=== PATIENT | female | born 1945 | race Caucasian/White ===

== ENCOUNTER 2016-08-30 11:20 | Emergency (ER) | payer OTHER, MEDICARE ==
[2016-08-30 11:27] VITALS: BP 150/99; PULSE 73; RESP 14; TEMP 97.9; O2SAT 99
--- NOTE | 2016-08-30 11:58 | EDPHY ---
H & P Stated Complaint: R WRIST INJ AFTER FALL Time Seen by Provider: 08/30/16 11:43 - Personal History Current Tetanus/Diphtheria Vaccine: Unsure Current Tetanus Diphtheria and Acellular Pertussis (TDAP): Unsure Tetanus Vaccine Date: 2005 - Medical/Surgical History Hx Asthma: No Hx Chronic Respiratory Disease: No Hx Diabetes: No Hx Cardiac Disease: No Hx Renal Disease: No Hx Cirrhosis: No Hx Alcoholism: No Hx HIV/AIDS: No Hx Splenectomy or Spleen Trauma: No Other PMH: DENIES - Social History Smoking Status: Never smoked Constitutional: Initial Vital Signs Temperature (C) 36.6 C 08/30/16 11:24 Heart Rate 73 08/30/16 11:24 Respiratory Rate 14 08/30/16 11:24 Blood Pressure 150/99 H 08/30/16 11:24 O2 Sat (%) 99 08/30/16 11:24 O2 Delivery Mode Room Air Allergies/Adverse Reactions: meperidine HCl [From Demerol] Allergy (Verified 02/14/13 21:30) Home Medications: Medication Instructions Recorded Amoxicillin/Clavulanate Pot 875 mg PO BID #14 tab 02/14/13 [Augmentin 875 mg tab] BUPROPION HCL [BUPROPION XL] 150 mg PO BID 02/14/13 Ciprofloxacin [Cipro] 500 mg PO BID@1000,199902/14/13 Citalopram Hydrobromide 40 mg PO DAILY 02/14/13 [Citalopram HBr 40 MG] Hydroxychloroquine Sulfate 200 mg PO DAILY 02/14/13 [Plaquenil 200 mg (RX)] Methotrexate Sodium/Pf 25 mg IJ 02/14/13 [Methotrexate 25 mg/ml Vial] Ondansetron Odt [Zofran Odt 4 mg 4 mg PO Q4PRN PRN #6 tab 02/14/13 (*)] metroNIDAZOLE [Flagyl 500 mg (RX)] 500 mg PO Q8 02/14/13 predniSONE [Prednisone] 5 mg PO DAILY 02/14/13 Departure - Departure Referrals: Jeanette Bolton MD [Primary Care Provider] - As per Instructions
--- NOTE | 2016-08-30 12:03 | EDPHY ---
H & P Smoking Status: Never smoked Time Seen by Provider: 08/30/16 11:43 HPI/ROS: CHIEF COMPLAINT: Right wrist pain HISTORY OF PRESENT ILLNESS: 70-year-old female presents emergency department complaining of right wrist pain. Patient is [id number]. Patient had a mechanical trip and fall today, she hit her right wrist on the bookshelf and had immediate pain and swelling. Patient denies numbness or tingling in this arm , no previous injuries to this arm. She denies head strike, no neck pain, she remembers the entire accident. (Dianne Howell) Physical Exam: GEN: Awake, alert, oriented, no acute distress RESP: nl resp effort MSK: Right wrist with tenderness to palpation to ulnar styloid, distal radius tenderness to palpation, mild snuffbox tenderness, no elbow tenderness, cap refill less than 2 seconds, sensation intact to light touch, 2+ radial pulses, superficial abrasion to medial forearm (Dianne Howell) Constitutional: Initial Vital Signs Temperature (C) 36.6 C 08/30/16 11:24 Heart Rate 73 08/30/16 11:24 Respiratory Rate 14 08/30/16 11:24 Blood Pressure 150/99 H 08/30/16 11:24 O2 Sat (%) 99 08/30/16 11:24 O2 Delivery Mode Room Air Allergies/Adverse Reactions: meperidine HCl [From Demerol] Allergy (Verified 02/14/13 21:30) Home Medications: Medication Instructions Recorded Amoxicillin/Clavulanate Pot 875 mg PO BID #14 tab 02/14/13 [Augmentin 875 mg tab] BUPROPION HCL [BUPROPION XL] 150 mg PO BID 02/14/13 Ciprofloxacin [Cipro] 500 mg PO BID@1000,199902/14/13 Citalopram Hydrobromide 40 mg PO DAILY 02/14/13 [Citalopram HBr 40 MG] Hydroxychloroquine Sulfate 200 mg PO DAILY 02/14/13 [Plaquenil 200 mg (RX)] Methotrexate Sodium/Pf 25 mg IJ 02/14/13 [Methotrexate 25 mg/ml Vial] Ondansetron Odt [Zofran Odt 4 mg 4 mg PO Q4PRN PRN #6 tab 02/14/13 (*)] metroNIDAZOLE [Flagyl 500 mg (RX)] 500 mg PO Q8 02/14/13 predniSONE [Prednisone] 5 mg PO DAILY 02/14/13 MDM/Departure - MDM Diagnostics: Right wrist xray independently reviewed by me- Impression: Acute minimally displaced distal ulnar fracture. Dictated By: Chad Salazar MD (Dianne Howell) Procedures: A volar Ortho Glass splint was applied. After application of the splint, I returned and re-examined the patient. The splint was adequately immobilizing the joint. The patients circulation and sensation were intact distal to the splint. (Dianne Howell) ED Course/Re-evaluation: The patient was evaluated and managed by the Physician Ghost Writer/ Nurse Practitioner. My co-signature indicates that I have reviewed this chart and I agree with the findings and plan of care as documented. I am the secondary supervising physician. (Gwendolyn Ambriz) - Depart Disposition: Home, Routine, Self-Care Clinical Impression: Right distal ulnar fracture Condition: Good Instructions: Wrist Fracture in Adults (ED) Additional Instructions: Rest, ice, elevate, take 600 mg of ibuprofen every 8 hours with food for 3 days. Keep splint clean and dry, follow up with orthopedist at 1st available appointment, call today to schedule this. Return to the emergency department for pain that is not controlled, numbness or tingling in your arm, new symptoms or concerns. Referrals: Gordon Moser MD [Medical Doctor] - As per Instructions
== END 2016-08-30 12:46 | disposition home or self-care (01) ==
DX: S52.601A Unspecified fracture of lower end of right ulna, initial encounter for closed fracture (principal); W01.198A Fall on same level from slipping, tripping and stumbling with subsequent striking against other object, initial encounter; Y93.89 Activity, other specified

== ENCOUNTER → 2017-02-11 | Outpatient (CLI) | payer OTHER, MEDICARE ==
[~2017-02-11] MED LIST: GADOBUTROL 10 ML VIAL IVP ONE
== END ==
LOC: FIMAGING 07:41
PROVIDERS: ATTEND Psychiatry & Neurology Neurology
DX: R41.3 Other amnesia (principal)
CPT/HCPCS: 70553; A9585; 82607-90; 83921-90

== ENCOUNTER 2017-07-15 16:37 | Inpatient (IN) | payer OTHER, MEDICARE ==
[2017-07-15] MEDS ORDERED: ONDANSETRON 4 MG/2 ML VIAL IVP ONE ×2 (16:56→17:38)
[2017-07-15] MEDS ORDERED: ONDANSETRON 4 MG/2 ML VIAL ONE (16:58)
--- NOTE | 2017-07-15 16:58 | EDPHY ---
H & P Stated Complaint: ABd pain w/nausea this afternoon Time Seen by Provider: 07/15/17 16:56 HPI/ROS: CHIEF COMPLAINT: Severe abdominal pain HISTORY OF PRESENT ILLNESS: The patient presents to the ED with a 1 day history of severe abdominal pain and vomiting. She complains primarily of a left upper quadrant pain. She has vomited several times. She has no prior abdominal surgical history. The patient does have a history of remote diverticulitis. The patient denies any hematemesis or melena. The patient does have a history of rheumatoid arthritis. The patient denies any fever, cough or congestion. She denies any travel outside the [place] a recent antibiotic use. REVIEW OF SYSTEMS: A comprehensive 10 point review of systems is otherwise negative aside from elements mentioned in the history of present illness. Source: Patient Exam Limitations: No limitations - Personal History Current Tetanus Diphtheria and Acellular Pertussis (TDAP): Yes Tetanus Vaccine Date: 2005 - Medical/Surgical History Hx Asthma: No Hx Chronic Respiratory Disease: No Hx Diabetes: No Hx Cardiac Disease: No Hx Renal Disease: No Hx Cirrhosis: No Hx Alcoholism: No Hx HIV/AIDS: No Hx Splenectomy or Spleen Trauma: No Other PMH: diverticulosis. RA. memory issues - Social History Smoking Status: Never smoked - Physical Exam Exam: General Appearance: Alert, appears uncomfortable Eyes: Pupils equal and round no pallor or injection ENT, Mouth: Mucous membranes moist Respiratory: There are no retractions, lungs are clear to auscultation Cardiovascular: Regular rate and rhythm Gastrointestinal: Diffuse generalized tenderness to palpation, hypoactive bowel sounds, mild distension Neurological: A&O, normal motor function, normal sensory exam, normal cranial nerves Skin: Warm and dry, no rashes Musculoskeletal: Neck is supple nontender Extremities: symmetrical, full range of motion Psychiatric: Patient is oriented X 3, there is no agitation Constitutional: Initial Vital Signs Temperature (C) 36.9 C 07/15/17 16:38 Heart Rate 69 07/15/17 16:38 Respiratory Rate 20 07/15/17 16:38 Blood Pressure 171/110 H 07/15/17 16:38 O2 Sat (%) 100 07/15/17 16:38 O2 Delivery Mode Room Air Allergies/Adverse Reactions: meperidine HCl [From Demerol] Allergy (Mild, Verified 07/15/17 16:43) gi upset Home Medications: Medication Instructions Recorded BUPROPION HCL [BUPROPION XL] 150 mg PO BID 02/14/13 Citalopram Hydrobromide 40 mg PO DAILY 02/14/13 [Citalopram HBr 40 MG] Hydroxychloroquine Sulfate 200 mg PO DAILY 02/14/13 [Plaquenil 200 mg (RX)] Abatacept [Orencia] 07/15/17 Cholecalciferol Vit D3 [Vitamin D3 1,000 units PO DAILY 07/15/17 (*)] Menitine 07/15/17 Medical Decision Making - Diagnostics Imaging Results: Imaging Impressions Abdomen CT 07/15/17 17:18 Impression: 1. Partial small bowel obstruction of the jejunum with the appearance of a left internal hernia, likely left paraduodenal. 2. Large hiatal hernia. Results discussed with Ramiro Abdalla PA-C, on 15 July 2017 at 1815 hours. ED Course/Re-evaluation: The patient presents the ED with sudden onset severe left upper quadrant pain and vomiting. The patient was noted to be quite uncomfortable upon exam. The patient had an IV established. She was placed on a recreation leader a stat I- STAT was obtained and a normal creatinine was verified. The patient was taken for an emergent CT scan of the abdomen pelvis and I notify Dr. Mejia of the patient's concerning examination. CT scan of the abdomen pelvis does demonstrate evidence of a bowel obstruction and internal hernia. The patient is being evaluated by Dr. Mejia at 6:10 p.m. An NG tube was placed in the patient. His plan is for observation and serial exams. Differential Diagnosis: Differential diagnosis considered includes peritonitis, perforation, obstruction , bowel ischemia Critical Care Time: Critical care time exclusive of procedures and exclusive of the PA's time was 35 minutes, performed by myself, Aman Estrada MD. The patient presents the ED with an acute surgical abdomen and closed loop obstruction. She required urgent consultation by the general surgeon. - Data Points Laboratory Results: Laboratory Results 07/15/17 16:54 07/15/17 16:54 07/15/17 07/15/17 16:54 16:54 WBC 6.71 10^3/uL 10^3/uL (3.80-9.50) RBC 4.71 10^6/uL 10^6/uL (4.18-5.33) Hgb 15.1 g/dL g/dL (12.6-16.3) Hct 43.6 % % (38.0-47.0) MCV 92.6 fL fL (81.5-99.8) MCH 32.1 pg pg (27.9-34.1) MCHC 34.6 g/dL g/dL (32.4-36.7) RDW 13.3 % % (11.5-15.2) Plt Count 271 10^3/uL 10^3/uL (150-400) MPV 9.4 fL fL (8.7-11.7) Neut % (Auto) 68.8 % % (39.3-74.2) Lymph % (Auto) 23.1 % % (15.0-45.0) [place] % (Auto) 6.7 % % (4.5-13.0) Eos % (Auto) 0.4 % L % (0.6-7.6) Baso % (Auto) 0.6 % % (0.3-1.7) Nucleat RBC Rel Count 0.0 % % (0.0-0.2) Absolute Neuts (auto) 4.61 10^3/uL 10^3/uL (1.70-6.50) Absolute Lymphs (auto) 1.55 10^3/uL 10^3/uL (1.00-3.00) Absolute Monos (auto) 0.45 10^3/uL 10^3/uL (0.30-0.80) Absolute Eos (auto) 0.03 10^3/uL 10^3/uL (0.03-0.40) Absolute Basos (auto) 0.04 10^3/uL 10^3/uL (0.02-0.10) Absolute Nucleated RBC 0.00 10^3/uL 10^3/uL (0-0.01) Immature Gran % 0.4 % % (0.0-1.1) Immature Gran # 0.03 10^3/uL 10^3/uL (0.00-0.10) Sodium 140 mEq/L mEq/L (135-145) Potassium 4.1 mEq/L mEq/L (3.5-5.2) Chloride 104 mEq/L mEq/L (97-110) Carbon Dioxide 20 mEq/l L mEq/l (22-31) Anion Gap 16 mEq/L mEq/L (8-16) BUN 19 mg/dL mg/dL (7-23) Creatinine 0.8 mg/dL mg/dL (0.6-1.0) Estimated GFR > 60 Glucose 141 mg/dL H mg/dL (70-100) Calcium 9.9 mg/dL mg/dL (8.5-10.4) Total Bilirubin 0.5 mg/dL mg/dL (0.1-1.4) Conjugated Bilirubin 0.3 mg/dL mg/dL (0.0-0.5) Unconjugated Bilirubin 0.2 mg/dL mg/dL (0.0-1.1) AST 23 IU/L IU/L (14-46) ALT 26 IU/L IU/L (9-52) Alkaline Phosphatase 98 IU/L IU/L (38-126) Total Protein 7.5 g/dL g/dL (6.3-8.2) Albumin 4.6 g/dL g/dL (3.5-5.0) Lipase 86 IU/L IU/L (23-300) Medications Given: Discontinued Medications Sodium Chloride (Ns) 1,000 mls @ 0 mls/hr IV ONCE ONE PRN Reason: Wide Open Stop: 07/15/17 17:38 Last Admin: 07/15/17 17:42 Dose: 1,000 mls Lidocaine (Uroject Lidocaine 2% Jelly) 20 ml UR ONCE ONE Stop: 07/15/17 18:37 Last Admin: 07/15/17 18:53 Dose: 20 ml Morphine Sulfate (Morphine) 4 mg IVP EDNOW ONE Stop: 07/15/17 17:20 Last Admin: 07/15/17 17:33 Dose: 4 mg Ondansetron HCl (Zofran) 4 mg IVP EDNOW ONE Stop: 07/15/17 16:57 Last Admin: 07/15/17 17:00 Dose: 4 mg Ondansetron HCl (Zofran) 4 mg IVP EDNOW ONE Stop: 07/15/17 17:39 Last Admin: 07/15/17 17:42 Dose: 4 mg Departure - Departure Disposition: [facility] Acute Clinical Impression: Obstructed internal hernia Condition: Fair
[2017-07-15 17:19] LABS: PLATELET COUNT 271 10^3/uL (150-400)
[2017-07-15] MEDS ORDERED: IOPAMIDOL (ISOVUE-300) 100 ML BTL ONE (17:24)
[2017-07-15] MEDS ORDERED: NS 1,000 ML IV ONE (17:37)
[2017-07-15] MEDS ORDERED: LIDOCAINE 2% JELLY 20 ML (UROJECT) UR ONE (18:36)
[2017-07-15] MEDS ORDERED: CEPACOL LOZENGE PO PRN (18:58)
[2017-07-15] MEDS ORDERED: PROCHLORPERAZINE MALEATE 25 MG SUPPR PR PRN (19:07)
[2017-07-15] MEDS ORDERED: D5W 1/2 NS 1,000 ML IV SCH (19:15)
--- NOTE | 2017-07-15 20:15 | GHP ---
[f rep st] PREOP HISTORY AND PHYSICAL DATE OF ADMISSION: 07/15/2017 ADMITTING DIAGNOSES: 1. Jejunal small bowel obstruction. 2. Large hiatal hernia. HISTORY: The patient is a 71-year-old female who was in her usual state of health until 2:00 p.m. She had a chicken sandwich at 12:30, and at 2:00 p.m., she had the onset of an epigastric discomfort and nausea. By 3:00 to 3:30, she was beginning to have emesis (minimally productive) which prompted her to come to the emergency room. She has not had any prior abdominal surgery or prior similar episode. She did have an episode 2-1/2 years ago of diverticulitis when she was in [place]. She has recently had an upper respiratory tract infection. There is no history of diarrhea. In fact, she normally moves her bowels once a day and did so this morning. She has had no prior abdominal surgery. There is no history of inflammatory bowel disease. She was in [place] over [place] and in [place] last January. SOCIAL HISTORY: She does not smoke and never has. She has 1-2 drinks of Nicole a night. ALLERGIES: She developed a rash with Demerol, but no hives or difficulty breathing or oropharyngeal swelling. PAST MEDICAL HISTORY: She does have rheumatoid arthritis and takes Plaquenil 200 mg 2 times a day and Orencia monthly. She also takes Celexa 40 mg daily and bupropion XL 150 mg twice a day as well as B12. She uses memantine twice a day, and the dose is believed to be 10 mg. Her only surgery has been a tonsillectomy. There is no history of rheumatic fever, tuberculosis, or transfusions. Note is made that she was vaccinated with BCG as a young girl and she has had hepatitis B. 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 She has had malaria twice (falciparum). She has a history of a concussion. She wears lenses for reading. She has occasional stress incontinence. There are no limits on her activities. No history of steroid use. PHYSICAL EXAMINATION: GENERAL: She is quite pleasant and interactive. HEENT: Shows skull which is normocephalic and atraumatic. Pupils equal, round , reactive to light and accommodation with extraocular movements intact. NECK: Supple, nontender. There is no thyroid enlargement. There are carotid bruits. There is no cervical, supraclavicular, axillary, or inguinal lymphadenopathy. BACK: Unremarkable. LUNGS: Clear to auscultation. CARDIAC: Shows S1 and S2 to be normal with no split of S2, without murmurs, rubs, or gallops. ABDOMEN: Distended. She has rare but normal bowel sounds. There are no high- pitched bowel sounds. There are no "rain barrel" sounds. It is distended, and minimally tender. Pelvis is stable to AP and lateral compression. EXTREMITIES : Lower extremities are unremarkable. DIAGNOSTIC DATA: Her CT does show a large hiatal hernia. On the left side, she has what appears to be an internal hernia. The question is raised as to whether it is a paraduodenal hernia. I suspect rather this is due to omentum being adhesed down with the prior episode of diverticulitis and the bowel getting stuck behind it. Nonetheless, an NG tube was successfully passed through the right naris. I am able to pass it to 45 cm. It is difficult to pass it further. I feel I am probably in the hiatal hernia. We will leave it there overnight, and we may have to advance it in the morning. LABORATORY DATA: Her white blood cell count is 6.7 with 69% neutrophils. Platelet count is 271. Hematocrit is 43. Sodium is 140, potassium is 4.1, BUN is 19, creatinine is 0.8, glucose is 141, lipase is 86. IMPRESSION: The patient has a partial early jejunal bowel obstruction secondary to either adhesions or possible paraduodenal hernia. She also has a large hiatal hernia. A trial with decompression will be considered as she is not toxic at this point and I am not concerned for bowel injury/ischemia yet. She will be reassessed in the morning with x-rays and laboratories. /[id number]/MODL MTDD
[2017-07-15] MEDS: KETOROLAC 30 MG/1 ML SDV IVP SCH (23:26)
[2017-07-16 05:14] LABS: PLATELET COUNT 244 10^3/uL (150-400)
[2017-07-16] MEDS: KETOROLAC 30 MG/1 ML SDV IVP SCH (06:09)
--- NOTE | 2017-07-16 09:58 | ASMTCASEMG ---
Living Arrangements What is your living Answers: With Partner arrangement? Who do you live with? Type Of Residence What kind of residence do Answers: House you live in? Discharge Plan Comments Coordination Status Comments Notes: Pt is a 71 y/o female admitted for a closed loop bowel obstruction. Surgery has been consulted. PT, OT and PRODUCT REPRESENTATIVE has been ordered. Needs are TBD at this time. CM to follow. Plan: TBD Date Signed: 07/16/2017 09:57 AM Electronically Signed By:VALDO Beckham
[2017-07-16] MEDS ORDERED: ONDANSETRON 4 MG/2 ML VIAL ONE (10:58)
[2017-07-16] MEDS: ONDANSETRON 4 MG/2 ML VIAL IVP PRN (11:07)
--- NOTE | 2017-07-16 11:11 | SOAPPROG ---
SOAP Progress Note Assessment/Plan: Assessment: abdominal pain unclear etiology persistant despite NGT no clearly established etiology (suspected "paraduodenal hernia" on CT) large paraesophogeal hernia Hx of RA last received Orencia 2 weeks ago Plan: Continue IV fluids and NPO SBFT study via NGT, comfort measures, PPI 07/16/17 11:12 07/16/17 11:15 Subjective: persistant epigastric/rafia-umbilical pain vomiting around NGT Objective: Vital Signs Temp Pulse Resp BP Pulse Ox 36.9 C 70 16 92/61 L 93 07/16/17 07:18 07/16/17 07:18 07/16/17 07:18 07/16/17 07:18 07/16/17 07:18 Laboratory Results 07/16/17 05:01 07/16/17 05:01 07/15/17 07/16/17 07/17/17 05:59 05:59 05:59 Intake Total 100 Output Total 100 Balance 100 -100 - Time Spent With Patient Time Spent With Patient: 20 - Pending Discharge Pending Discharge Within 24 Hours: No Physical Exam - Physical Exam General Appearance: alert, mild distress Respiratory: lungs clear Cardiac/Chest: regular rate, rhythm Abdomen: soft, distended, other (mild upper abdominal tenderness/no mass or hernia/no guarding or rebound) Pelvic Exam: deferred Rectal: deferred Lymphatic: no adenopathy Extremities: normal range of motion Neuro/Psych: other (reports memory loss) ICD10 Worksheet Patient Problems: Problems Problem Status Onset Abdominal pain Acute Memory loss of unknown cause Acute Obstructed internal hernia Acute Rheumatoid arthritis Acute - ICD10 Problem Qualifiers (1) Abdominal pain Qualifiers: Abdominal location: epigastric Qualified Code(s): R10.13 - Epigastric pain (2) Rheumatoid arthritis Qualifiers: Rheumatoid arthritis location: multiple sites (3) Memory loss of unknown cause
[2017-07-16] MEDS: PANTOPRAZOLE SODIUM 40 MG VIAL IVP SCH (11:15)
--- NOTE | 2017-07-16 16:33 | SOAPPROG ---
Downtime Inpatient MD Late Entry SOAP Note: SBFT aborted due to inability to pass NGT beyond hiatal hernia. Gastrograffin had been administered and I was concerned about proceeding with high risk of aspiration. I removed the NGT (it had not drained much) and cancelled the study for now. She has a soft/non-tender abdomen currently. I will request a repeat KUB in the morning and if dilated loops of bowel persist order a barium UGI, which would be much safer from an aspiration risk.
--- NOTE | 2017-07-16 19:55 | SOAPPROG ---
Downtime Inpatient MD Late Entry SOAP Note: Sharon is resting comfortably/ at bedside She denies pain or nausea presently She is somewhat more confused, but reorients with conversation Her abd is soft with mild epigastric tenderness to deep palpation, bowel sounds are hypoactive Imp: abd pain, unclear etiology clinically resolving Rec: repeat KUB in AM +/- barium UGI discussed plan with patient and her S MD Say, FACS
[2017-07-17] MEDS: ONDANSETRON 4 MG/2 ML VIAL IVP PRN (00:49)
--- NOTE | 2017-07-17 06:57 | SOAPPROG ---
[facility] Progress Note Assessment/Plan: Assessment: abdominal pain-resolved no clearly established etiology (suspected "paraduodenal hernia" on CT) large paraesophogeal hernia Hx of RA last received Orencia 2 weeks ago Plan: advance to clear liquids continue PPI/hold off on UGI for now anticipate discharge tomorrow if diet tolerated/continue GI work up as outpatient 07/16/17 11:12 07/16/17 11:15 07/17/17 06:54 Subjective: feeling better, no pain, no emesis after NG removal Objective: Vital Signs Temp Pulse Resp BP Pulse Ox 36.9 C 48 L 16 118/71 95 07/17/17 04:00 07/17/17 04:00 07/17/17 04:00 07/17/17 04:00 07/17/17 04:00 Laboratory Results 07/16/17 05:01 07/16/17 05:01 07/16/17 07/17/17 07/18/17 05:59 05:59 05:59 Intake Total 100 1200 Output Total 700 Balance 100 500 Physical Exam - Physical Exam General Appearance: alert, no apparent distress Cardiac/Chest: regular rate, rhythm Abdomen: normal bowel sounds, non-tender, soft ICD10 Worksheet Patient Problems: Problems Problem Status Onset Abdominal pain Acute Memory loss of unknown cause Acute Obstructed internal hernia Acute Rheumatoid arthritis Acute - ICD10 Problem Qualifiers (1) Abdominal pain Qualifiers: Abdominal location: epigastric Qualified Code(s): R10.13 - Epigastric pain (2) Rheumatoid arthritis Qualifiers: Rheumatoid arthritis location: multiple sites (3) Memory loss of unknown cause
[2017-07-17] MEDS: PANTOPRAZOLE SODIUM 40 MG VIAL IVP SCH (09:00)
[2017-07-17] MEDS: D5W 1/2 NS W/ 20 KCl/L 1,000 ML IV SCH (15:43)
[2017-07-17] MEDS ORDERED: HYDROmorphONE/DILAUDID 1 MG/ML INJ IVP PRN (20:40)
[2017-07-18] MEDS: D5W 1/2 NS W/ 20 KCl/L 1,000 ML IV SCH (06:41)
[2017-07-18 07:25] VITALS: RESP 18
[2017-07-18] MEDS: PANTOPRAZOLE SODIUM 40 MG VIAL IVP SCH (09:40)
[2017-07-18] MEDS ORDERED: PANTOPRAZOLE SODIUM 40 MG TAB PO ONE (10:01)
--- NOTE | 2017-07-18 10:12 | PDDCSUM ---
Discharge Summary Discharge Summary: #[id number] Catrachito Deal MD, FACS
--- NOTE | 2017-07-18 10:36 | GDS ---
[f rep st] DISCHARGE SUMMARY DISCHARGE DIAGNOSES: 1. Abdominal pain, unclear etiology. 2. Hiatal hernia. 3. Dementia. 4. History of depression. 5. Rheumatoid arthritis. PROCEDURES PERFORMED: CT scan of the abdomen and pelvis on admission. Nasogastric tube placement. Attempted small-bowel follow-through. HOSPITAL COURSE: For details of admission History and Physical, please see dictated summary by Dr. Lore Mejia and ED consult by Dr. Abhay Estrada. Briefly, the patient is a 71-year-old female, who prese nted with acute vomiting and abdominal pain. CT scan showed a possible bowel obstruction, and a naso gastric tube was placed. Because of a pre-existing hiatal hernia, the tube did not go below the diap hragm, and this was confirmed the following day on plain film. A small-bowel follow-through was requ ested, and contrast was passed through the NG tube but could not be advanced into the distal stomach. At this point, the patient had no clinical signs of abdominal pain, and I chose to remove the NG tu be and keep her n.p.o. under observation. Her abdominal pain resolved. She had no further emesis. She was started on a clear liquid diet and was slowly advanced in her diet as tolerated. She had sev eral bowel movements. A KUB on the morning after the attempted small-bowel follow-through showed con trast had passed through the small bowel and was in the colon. At time of discharge, she was afebril e, ambulating with assistance, and tolerating a soft diet. I recommended she continue pantoprazole, which was started on the day after admission, for an additional 30 days, and follow up with her prima care doctor, Ana Rosa Bolton. An outpatient upper GI with barium would be appropriate as a next amos p in workup, and would not require sedation which could exacerbate her recently evaluated dementia. Patient will resume Orencia, her last dose was 2 weeks ago, and follow up with Dr. Morgan Hidalgo. S he also has neurologic follow up with Dr. Sarah Owens. DISCHARGE MEDICATIONS: Plaquenil 200 mg p.o. daily, citalopram 40 mg q.h.s., bupropion 150 mg p.o. b .i.d., Namenda 10 mg p.o. b.i.d., Orencia q.30 days, vitamin D3 1000 units p.o. daily, and pantoprazo le 40 mg p.o. daily. /[id number]/MODL
[2017-07-18 11:18] VITALS: BP 124/80; PULSE 55; TEMP 98; O2SAT 92
--- NOTE | 2017-07-18 15:36 | ASMTLACE ---
LACE Length of stay for Answers: 2 days current admission Acuity / Level of Answers: No Care: Did the patient have an inpatient admission? Comorbidities - select Answers: Dementia all that apply Other # of Emergency department Answers: 1-2 visits in the last 6 months Social determinants Answers: Mental health diagnosis (anxiety, depression, pers onality disorders, etc.) Score: 10 Date Signed: 07/18/2017 03:35 PM Electronically Signed By:Ramona Mccartney RN
--- NOTE | 2017-07-18 15:46 | ASMTCMCOM ---
CM Note CM Note Notes: Spoke w/, PT/OT recommend home w/24hr supervision. declined need for homecare, states he is with her all the time. Advised him if needed once they are home, PCP can order homecare. DC Plan: Home w/ Date Signed: 07/18/2017 03:46 PM Electronically Signed By:Ramona Mccartney RN
--- NOTE | 2017-07-18 15:55 | ASDISCHSUM ---
Discharge Information Plan Status:Home with No Needs Medically Cleared to Leave: Discharge Date:07/18/2017 01:49 PM CM D/C Disposition:Home, Routine, Self-Care ADT D/C Disposition:Home, Routine, Self-Care Projected Discharge Date:07/18/2017 01:49 PM Transportation at D/C:Family Discharge Delay Reason: Follow-Up Date:07/18/2017 01:49 PM Discharge Slot: Final Diagnosis: Placement Information Patient Contact Information Contact Name:ZAHRA Relationship: Address:[address] [place] [address] City:[place] Alternate Phone: [facility]/Zip Code:[place] [address] Email: Financial Information Financial Class: Primary Plan Desc:MEDICARE INPATIENT Primary Plan Number:[id number] Secondary Plan Desc:[employer]/MDR SUPPLEMENT Secondary Plan Number:[id number] Assessment Information [facility] Initial CM Assessment Living Arrangements What is your living Answers: With Partner arrangement? Who do you live with? Type Of Residence What kind of residence do Answers: House you live in? Discharge Plan Comments Coordination Status Comments Notes: Pt is a 71 y/o female admitted for a closed loop bowel obstruction. Surgery has been consulted. PT, OT and FOOD SAFETY SCIENTIST has been ordered. Needs are TBD at this time. CM to follow. Plan: TBD Date Signed: 07/16/2017 09:57 AM Electronically Signed By:VALDO Beckham LACE LACE Length of stay for Answers: 2 days current admission Acuity / Level of Answers: No Care: Did the patient have an inpatient admission? Comorbidities - select Answers: Dementia all that apply Other # of Emergency department Answers: 1-2 visits in the last 6 months Social determinants Answers: Mental health diagnosis (anxiety, depression, pers onality disorders, etc.) Score: 10 Date Signed: 07/18/2017 03:35 PM Electronically Signed By:Ramona Mccartney RN [facility] CM Progress Note CM Note CM Note Notes: Spoke w/, PT/OT recommend home w/24hr supervision. declined need for homecare, states he is with her all the time. Advised him if needed once they are home, PCP can order homecare. DC Plan: Home w/ Date Signed: 07/18/2017 03:46 PM Electronically Signed By:Ramona Mccartney RN Intervention Information Intervention Type:*RAMIREZ-Signed Date of Service:07/16/2017 10:43 AM Patient Type:Observation Staff Member:Evelia Jean Hours: Discipline: Severity: Comment: Intervention Type:*Occurence 71 Date of Service:07/18/2017 02:44 PM Patient Type:Inpatient Staff Member:MELLISA Sandoval Susan Hours: Discipline: Severity: Comment:
== END 2017-07-18 13:49 | disposition home or self-care (01) | DRG 392 ==
LOC: INTOOBSV 18:18 → F3E 19:43 → OBSVTOIN 07-17 14:45
PROVIDERS: ADMIT Surgery; ATTEND Surgery
DX: R10.13 Epigastric pain (principal); R11.11 Vomiting without nausea; K44.9 Diaphragmatic hernia without obstruction or gangrene; F03.90 Unspecified dementia, unspecified severity, without behavioral disturbance, psychotic disturbance, mood disturbance, and anxiety; F32.9 Major depressive disorder, single episode, unspecified; M06.9 Rheumatoid arthritis, unspecified
CPT/HCPCS: 92523-GN; 96374; 97116-GP; 97162-GP; 97166-GO; 97530-GP; 97535-GO; G0378; G8978-GP-CJ; G8979-GP-CI; G8980-GP-CI; G8987-GO-CJ; G8988-GO-CI; G9165-GN-CK; G9166-GN-CK; G9167-GN-CK; J1170; J1885; J2405; Q9967

== ENCOUNTER → 2018-03-03 | Outpatient (CLI) | payer OTHER, MEDICARE | LOC: BMCIMAGING 12:28 | PROVIDERS: ATTEND Family Medicine | DX: R22.31 Localized swelling, mass and lump, right upper limb (principal) ==

== ENCOUNTER → 2018-03-07 | Outpatient (CLI) | payer OTHER, MEDICARE ==
--- NOTE | 2018-03-10 11:51 | CPEEG ---
DATE OF STUDY: 03/07/2018 INTERPRETATION: This EEG contains a mild degree of diffuse nonspecific slowing. These findings woul d be consistent with a mild diffuse disturbance of cerebral function. There were no potentially epil eptogenic abnormalities present during the awake or sleep recordings. REPORT: This EEG contains 8-9 Hz alpha activity over the posterior head regions during maximal alert ness. There was a mild degree of diffuse theta slowing present in the background activity. There wa s no abnormal epileptiform activation with photic stimulation or hyperventilation. The patient inter mittently became drowsy and fell asleep during the study. There was no abnormal activation with drow siness, sleep, or during times of arousal. /[id number]/MODL
== END ==
LOC: FCPNEURO 07:54
PROVIDERS: ATTEND Psychiatry & Neurology Neurology
DX: F03.90 Unspecified dementia, unspecified severity, without behavioral disturbance, psychotic disturbance, mood disturbance, and anxiety (principal)

== ENCOUNTER → 2018-06-02 | Outpatient (CLI) | payer OTHER, MEDICARE | LOC: BMCIMAGING 09:40 | PROVIDERS: ATTEND Internal Medicine Rheumatology | DX: Z13.820 Encounter for screening for osteoporosis (principal); M85.89 Other specified disorders of bone density and structure, multiple sites; Z78.0 Asymptomatic menopausal state ==